=== PATIENT | female | born 1990 | race Caucasian/White ===

== ENCOUNTER 2020-02-13 14:03 | Outpatient (REF) | payer SELFPAY | END 2020-02-13 14:23 | LOC: NCHCN 14:03 | PROVIDERS: Visit Provider Family Medicine | DX: R09.81 Nasal congestion (principal); Z11.59 Encounter for screening for other viral diseases | CPT/HCPCS: U0003 ==

== ENCOUNTER 2020-04-25 12:22 | Outpatient (REF) | payer SELFPAY ==
[2020-04-28 12:42] LABS: SARS-CoV-2 RNA Not Detected (NotDetected); SARS-CoV-2 RNA Source Nasal/Nares
== END 2020-04-25 12:42 ==
LOC: NCHCN 12:22
PROVIDERS: Visit Provider Nurse Practitioner Family
DX: Z20.828 Contact with and (suspected) exposure to other viral communicable diseases (principal)
CPT/HCPCS: U0003

== ENCOUNTER 2020-12-11 09:04 | Outpatient (REF) | payer OTHER, SELFPAY ==
--- NOTE | 2020-12-11 08:35 | PAPFT_PTH ---
PATIENT: Melissa Sheffield LOC: [facility] U#:[id number] AGE/SX: 30/F ROOM: RE12/11/[address]: Luiza Boles : 1990 BED: DIS: 12/11/2020 SPEC #: [id number] RECD: 12/12/20 13:16 STATUS: DIA REEsteban #: [id number] BORIS: 12/11/20 08:[address]: Luiza Boles DEPT: [facility] Cytology RECD BY: Leonor Chance ENTERED: 12/12/20 13:16 SP TYPE: PAPFT NELLIE DR: Unknown,Unknown Tissues: 1 - CX/ENDOCX FOR PAP SMEARS Procedures: PAP THIN PREP/[facility] Screening HPV DNA PROBE Comments: [id number]
== END 2020-12-11 09:05 | disposition home or self-care (01) ==
LOC: NCHCN 09:04
PROVIDERS: Visit Provider Registered Nurse
DX: Z00.00 Encounter for general adult medical examination without abnormal findings (principal); Z12.4 Encounter for screening for malignant neoplasm of cervix; Z11.51 Encounter for screening for human papillomavirus (HPV)
CPT/HCPCS: 88142; 87624

== ENCOUNTER 2021-06-23 18:38 | Outpatient (REF) | payer OTHER, SELFPAY ==
[2021-06-24 10:17] LABS: COVID-19 RT-PCR UVMMC Result Positive (Negative)
== END 2021-06-23 18:39 | disposition home or self-care (01) ==
LOC: NCHCN 18:38
PROVIDERS: Visit Provider Nurse Practitioner Family
DX: Z20.822 Contact with and (suspected) exposure to COVID-19 (principal); J06.9 Acute upper respiratory infection, unspecified
CPT/HCPCS: U0003